=== PATIENT | female | born 2000 | race Caucasian/White ===

== ENCOUNTER 2022-09-02 20:53 | Emergency (ER) | payer OTHER ==
[~2022-09-02] VITALS: Ht 167.6 cm; Wt 65.9 kg
[2022-09-02 21:11] VITALS: TEMP 97.9
[2022-09-02 23:06] VITALS: BP 128/99; PULSE 90
== END 2022-09-02 23:06 | disposition home or self-care (01) ==
LOC: COL.ER 20:53
DX: J18.9 Pneumonia, unspecified organism (principal); Z28.310 Unvaccinated for COVID-19

== ENCOUNTER → 2022-10-10 | Outpatient (CLI) | payer OTHER ==
[2022-10-10 13:57] LABS: BASO % 0.3 % (0.0-2.0); EOS % 0.5 % (0.0-4.0); GRAN # 3.3 K/mm3 (1.4-6.5); GRAN % 55.4 % (42.2-75.2); HEMATOCRIT 43.8 % (37.0-47.0); LYMPH # 2.1 K/mm3 (1.2-3.4); LYMPH % 34.8 % (20.0-51.0); MEAN CELL VOLUME 89 fl (80.0-100.0); MEAN CORPUSCULAR HEMOGLOBIN 30 pg (27-31); MEAN CORPUSCULAR HGB CONC 34 g/dl (33.0-37.0); MEAN PLATELET VOLUME 10.5 fl (7.4-10.4); MONO # 0.5 K/mm3 (0.1-0.6); MONO % 8.8 % (1.7-9.3); PLATELET COUNT 322 K/mm3 (130-400); RED BLOOD COUNT 4.95 M/mm3 (4.10-5.30); REDCELL DISTRIBUTION WIDTH-CV 12.7 % (11.5-14.5)
[2022-10-10 14:10] LABS: ALBUMIN 4.6 gm/dL (3.5-5.0); BILIRUBIN,DIRECT 0.2 mg/dL (0.0-0.5); BILIRUBIN,TOTAL 0.6 mg/dL (0.2-1.2); CALCIUM 9.5 mg/dL (8.4-10.2); CREATININE, serum 0.83 mg/dL (0.57-1.11); POTASSIUM 4.2 mmol/L (3.5-4.5); TOTAL PROTEIN 7.4 gm/dL (6.2-8.1)
[2022-10-12 14:34] LABS: IMMUNOGLOBULIN A 121 mg/dL (65-421); IMMUNOGLOBULIN M, QUANTITATIVE 139 mg/dL (33-293)
[2022-10-12 18:52] LABS: C-ANCA 9 U/mL (0-99)
[2022-10-13 11:03] LABS: IMMUNO G SUBCLASS 1 482.2 mg/dL (()); IMMUNO G SUBCLASS 2 121.1 mg/dL (()); IMMUNO G SUBCLASS 3 26.6 mg/dL (()); IMMUNO G SUBCLASS 4 16.1 mg/dL (3.9-86.4)
== END ==
LOC: COL.LAB 12:54
PROVIDERS: Internal Medicine Pulmonary Disease
DX: J18.9 Pneumonia, unspecified organism (principal)